=== PATIENT | female | born 1985 | race Caucasian/White ===

== ENCOUNTER 2022-08-27 16:05 | Outpatient (CLI) | payer BC, SELFPAY | END 2022-08-27 16:06 | disposition home or self-care (01) | LOC: AMB 09-22 19:13 | PROVIDERS: PCP Family Medicine; Visit Provider Emergency Medicine Emergency Medical Services | DX: R10.9 Unspecified abdominal pain (principal) | CPT/HCPCS: A0425; A0427 ==